=== PATIENT | female | born 1975 | race American Indian/Alaskan Native ===

== ENCOUNTER 2018-07-18 13:59 | Outpatient (CLI) | payer OTHER ==
[~2018-07-18 13:59] MED LIST: CATAFLAM50 MG PO; SEPTRA DS TABLE1 TAB PO
== END 2018-07-18 14:09 | disposition home or self-care (01) ==
LOC: SONOGRAMA 13:59
DX: E03.8 Other specified hypothyroidism (principal)

== ENCOUNTER 2018-10-19 15:00 | Outpatient (CLI) | payer OTHER | END 2018-10-19 15:02 | disposition home or self-care (01) | LOC: SONOGRAMA 15:00 | DX: E03.8 Other specified hypothyroidism (principal) ==

== ENCOUNTER 2019-12-08 01:09 | Emergency (ER) | payer OTHER ==
[~2019-12-08] VITALS: Ht 162.6 cm; Wt 71.7 kg
[2019-12-08] MEDS ORDERED: AZILECT1 MG (01:31)
[2019-12-08] MEDS ORDERED: SPRINTEC 28 DA1 EACH (01:32)
== END 2019-12-08 02:33 | disposition home or self-care (01) ==
LOC: ER 01:09
DX: R51 Headache (principal)